=== PATIENT | female | born 2000 | race Caucasian/White ===

== ENCOUNTER 2018-01-09 15:40 | Emergency (ER) | payer OTHER ==
[~2018-01-09] VITALS: Ht 152.4 cm; Wt 61.2 kg
[2018-01-09 15:59] VITALS: BP_SYST 132
[2018-01-09] MEDS ORDERED: KETOROLAC TROMETHAMINE 60 MG/2 ML VIAL IM ONE (16:30)
[2018-01-09] MEDS ORDERED: HYDROcodone/ACETAMIN 7.5-325 MG TAB PO ONE (16:45)
[2018-01-09 16:47] LABS: HCG,QUAL RESULT NEGATIVE (NEGATIVE)
[2018-01-09 18:07] VITALS: BP_SYST 108
== END 2018-01-09 18:04 | disposition home or self-care (01) ==
LOC: SED 15:40
DX: K08.89 Other specified disorders of teeth and supporting structures (principal); R03.0 Elevated blood-pressure reading, without diagnosis of hypertension; J45.909 Unspecified asthma, uncomplicated
CPT/HCPCS: 81025; 84703; 96372; 99283; J1885

== ENCOUNTER 2018-07-16 10:19 | Emergency (ER) | payer OTHER ==
[~2018-07-16] VITALS: Ht 152.4 cm; Wt 61.2 kg
[2018-07-16 10:23] VITALS: BP_SYST 130
[2018-07-16] MEDS ORDERED: ALBUTEROL SULFATE 0.083% 2.5 MG/3 ML VIAL.NEB IH ONE (10:45)
[2018-07-16] MEDS ORDERED: DEXAMETHASONE SOD PHOSPHATE 4 MG/ML VIAL IVP ONE (10:45)
[2018-07-16] MEDS ORDERED: IPRATROPIUM BROM 0.5 MG/2.5 ML VIAL.NEB (ATROVENT) IH ONE (10:45)
[2018-07-16] MEDS ORDERED: DEXAMETHASONE SOD PHOSPHATE 10 MG/ML VIAL IVP ONE (10:45)
[2018-07-16] MEDS ORDERED: IPRATROPIUM/ALBUTEROL SULFATE 3 ML AMPUL.NEB (DUONEB) ONE (10:51)
[2018-07-16 11:40] VITALS: BP_SYST 130
== END 2018-07-16 11:40 | disposition home or self-care (01) ==
LOC: SED 10:19
DX: J45.901 Unspecified asthma with (acute) exacerbation (principal)
CPT/HCPCS: 81025; 94640; 96374; 99283; J1100; J7620

== ENCOUNTER 2019-01-17 11:18 | Emergency (ER) | payer OTHER ==
[~2019-01-17] VITALS: Ht 152.4 cm; Wt 61.2 kg
[2019-01-17 11:20] VITALS: BP_SYST 150
--- NOTE | 2019-01-17 11:24 | NUR ---
Patient triaged and placed in waiting room. VSS and patient appears in no acute distress at this time. Accompanied by mother, awaiting available bed, and MD notified of need for MSE.
--- NOTE | 2019-01-17 12:00 | NUR ---
Patient to ER bed 06 to gown for evaluation. Side rails up.
--- NOTE | 2019-01-17 12:00 | NUR ---
Pt AAOx4 ambulated into ED c/o cough with new onset wheezing x 2-3 days. Pt has hx of asthma and is using nebulizer with no relief. C/o epigastric discomfort during cough. Denies n/v/d. Skin pink dry and warm, cough present. No other injuries/complaints per pt/noted. Will continue to monitor.
--- NOTE | 2019-01-17 12:10 | NUR ---
TERESO Evangelista at bedside examining patient.
[2019-01-17] MEDS ORDERED: IPRATROPIUM/ALBUTEROL SULFATE 3 ML AMPUL.NEB (DUONEB) INH ONE (12:15)
[2019-01-17] MEDS ORDERED: methylPREDNISolone SOD SUCC/PF 62.5 MG/ML VIAL IM ONE (12:15)
--- NOTE | 2019-01-17 12:24 | NUR ---
Respiratory at bedside for breathing tx
--- NOTE | 2019-01-17 12:43 | NUR ---
Medication administered. Pt tolerated well. No adverse reactions noted.
--- NOTE | 2019-01-17 12:58 | NUR ---
Patient given written and verbal discharge instructions and verbalizes understanding. ER MD discussed with patient the results and treatment provided. Patient in stable condition. ID arm band removed. Rx of Prednisone given. Patient educated on pain management and to follow up with PMD. Pain Scale 0/10. Opportunity for questions provided and answered. Medication side effect fact sheet provided.
[2019-01-17 13:01] VITALS: BP_SYST 150
== END 2019-01-17 12:58 | disposition home or self-care (01) ==
LOC: SED 11:18
DX: J45.901 Unspecified asthma with (acute) exacerbation (principal)
CPT/HCPCS: 71045; 94640; 96372; 99283; J2930; J7620

== ENCOUNTER 2019-03-27 01:30 | Emergency (ER) | payer OTHER ==
[~2019-03-27] VITALS: Ht 165.1 cm; Wt 61.2 kg
[2019-03-27 01:56] VITALS: BP_SYST 128
[2019-03-27] MEDS ORDERED: LevALBUTEROL HCL 1.25 MG/0.5 ML *CONC.* VIAL.NEB (XOPENEX CONC.) INH ONE (02:15)
[2019-03-27] MEDS ORDERED: PREDNISONE 20 MG TABLET PO ONE (02:15)
[2019-03-27 03:19] VITALS: BP_SYST 128
== END 2019-03-27 03:19 | disposition home or self-care (01) ==
LOC: SED 01:30
DX: J45.901 Unspecified asthma with (acute) exacerbation (principal)
CPT/HCPCS: 94640; 99283; J7512; J7612

== ENCOUNTER 2019-12-30 14:11 | Emergency (ER) | payer OTHER ==
[~2019-12-30] VITALS: Ht 152.4 cm; Wt 61.2 kg
[2019-12-30 14:12] VITALS: BP_SYST 125
--- NOTE | 2019-12-30 14:12 | NUR ---
BROUGHT BACK TO BED #6 AND TRIAGED. REPORT GIVEN TO BRYAN
[2019-12-30] MEDS ORDERED: ALBUTEROL SULFATE 0.083% 2.5 MG/3 ML VIAL.NEB INH ONE ×2 (14:30→14:49)
[2019-12-30] MEDS ORDERED: IPRATROPIUM BROM 0.5 MG/2.5 ML VIAL.NEB (ATROVENT) INH ONE ×2 (14:30→14:48)
[2019-12-30] MEDS ORDERED: predniSONE 20 MG TABLET PO ONE (14:30)
--- NOTE | 2019-12-30 14:30 | NUR ---
ER at bedside examining patient.
--- NOTE | 2019-12-30 14:35 | NUR ---
pt getting a breathing tx a the bedside
--- NOTE | 2019-12-30 15:08 | NUR ---
Medicated w/ Prednisone per MD order.
[2019-12-30 15:36] VITALS: BP_SYST 125
== END 2019-12-30 15:36 | disposition home or self-care (01) ==
LOC: SED 14:11
DX: J45.909 Unspecified asthma, uncomplicated (principal)
CPT/HCPCS: 94640; 99283; J7512; J7613

== ENCOUNTER 2020-01-30 10:07 | Emergency (ER) | payer OTHER, SELFPAY ==
[~2020-01-30] VITALS: Ht 152.4 cm; Wt 61.2 kg
[2020-01-30 10:07] VITALS: BP_SYST 122
--- NOTE | 2020-01-30 10:07 | NUR ---
BROUGHT INTO OUTSIDE TENT AND TRIAGED. WILL ASSUME CARE
--- NOTE | 2020-01-30 10:30 | NUR ---
DR FIELD TO [facility] FOR EVALUATION OF PT.
[2020-01-30] MEDS ORDERED: predniSONE 20 MG TABLET PO ONE (10:45)
--- NOTE | 2020-01-30 11:30 | NUR ---
COVID TEST DONE, PT TOLERATED IT WELL. NO CHANGES. NO DISTRESS
--- NOTE | 2020-01-30 11:51 | NUR ---
Patient given written and verbal discharge instructions and verbalizes understanding. ER MD discussed with patient the results and treatment provided. Patient in stable condition. ID arm band removed. Rx of PREDNISONE, AZITHROMYCIN, ALBUTEROL given. Patient educated on pain management and to follow up with PMD. Pain Scale 0/10. Opportunity for questions provided and answered. Medication side effect fact sheet provided.
== END 2020-01-30 11:51 | disposition home or self-care (01) ==
LOC: SED 10:07
DX: J45.901 Unspecified asthma with (acute) exacerbation (principal); J20.9 Acute bronchitis, unspecified; Z20.828 Contact with and (suspected) exposure to other viral communicable diseases
CPT/HCPCS: 71045; 99284; C9803; U0003

== ENCOUNTER 2020-01-31 04:13 | Emergency (ER) | payer OTHER ==
[~2020-01-31] VITALS: Ht 152.4 cm; Wt 61.2 kg
[2020-01-31 04:15] VITALS: BP_SYST 152
--- NOTE | 2020-01-31 04:20 | NUR ---
Placed in room 6 . Placed on shipping packer, blood pressure machine and pulse oximeter. To gown for exam. Side rails up. Report given to SUKHWINDER MAGDALENO(REGISTRY).
--- NOTE | 2020-01-31 04:25 | NUR ---
ER at bedside examining patient.
[2020-01-31] MEDS ORDERED: IPRATROPIUM/ALBUTEROL SULFATE 3 ML AMPUL.NEB (DUONEB) ONE (04:38)
[2020-01-31] MEDS ORDERED: LevALBUTEROL HCL 1.25 MG/0.5 ML *CONC.* VIAL.NEB (XOPENEX CONC.) INH ONE ×2 (04:38→06:00)
[2020-01-31] MEDS: LevALBUTEROL HCL 1.25 MG/0.5 ML *CONC.* VIAL.NEB (XOPENEX CONC.) INH ONE ×2 (04:44→05:47)
--- NOTE | 2020-01-31 04:53 | NUR ---
PT C/O SOB DIFFICULTY BREATHING ASTHMA ON MONITOR PULSE OX
[2020-01-31] MEDS: predniSONE 20 MG TABLET PO ONE (05:00)
--- NOTE | 2020-01-31 05:04 | NUR ---
RT TO GIVE PT RESP TX ;PREDNISONE 40MG PO GIVEN
--- NOTE | 2020-01-31 05:41 | NUR ---
RT TO GIVE REPEAT BREATHING TX
[2020-01-31] MEDS: IPRATROPIUM BROM 0.5 MG/2.5 ML VIAL.NEB (ATROVENT) INH ONE (05:47)
--- NOTE | 2020-01-31 06:15 | NUR ---
DR GAMEZ ORDERED ANOTHER BREATHING TX RT CALLED PT STATES WHEN COUGHS CHEST HURTS PT UP TO BR TO VOID URINE KRYSTAL WELL
--- NOTE | 2020-01-31 07:11 | NUR ---
Patient given written and verbal discharge instructions and verbalizes understanding. ER MD discussed with patient the results and treatment provided. Patient in stable condition. ID arm band removed. , Rx 1 given. Patient educated on pain management and to follow up with PMD. Pain Scale . Opportunity for questions provided and answered. Medication side effect fact sheet provided.
[2020-01-31 07:16] VITALS: BP_SYST 122
== END 2020-01-31 07:11 | disposition home or self-care (01) ==
LOC: SED 04:13
DX: J45.901 Unspecified asthma with (acute) exacerbation (principal); Z79.899 Other long term (current) drug therapy
CPT/HCPCS: 94640; 99284; J7512; J7612

== ENCOUNTER 2020-05-03 17:26 | Emergency (ER) | payer OTHER ==
[~2020-05-03] VITALS: Ht 152.4 cm; Wt 61.2 kg
[2020-05-03 17:30] VITALS: BP_SYST 147
[2020-05-03] MEDS ORDERED: predniSONE 20 MG TABLET PO ONE (17:45)
[2020-05-03] MEDS ORDERED: IPRATROPIUM BROM 0.5 MG/2.5 ML VIAL.NEB (ATROVENT) INH ONE (17:45)
[2020-05-03] MEDS ORDERED: ALBUTEROL SULFATE 0.083% 2.5 MG/3 ML VIAL.NEB INH ONE (17:45)
[2020-05-03] MEDS ORDERED: PRED20TA PO (18:54)
[2020-05-03] MEDS ORDERED: ALBU2.5V7 INH (18:54)
[2020-05-03 19:10] VITALS: BP_SYST 147
== END 2020-05-03 19:10 | disposition home or self-care (01) ==
LOC: SED 17:26
DX: J45.901 Unspecified asthma with (acute) exacerbation (principal)
CPT/HCPCS: 71045; 94640; 99283; J7512; J7613

== ENCOUNTER 2020-09-19 07:03 | Emergency (ER) | payer OTHER ==
[~2020-09-19] VITALS: Ht 152.4 cm; Wt 68.0 kg
[~2020-09-19 07:03] MED LIST: ALBU2.5V7 INH; PRED20TA PO
[2020-09-19 07:30] VITALS: BP_SYST 151
[2020-09-19] MEDS ORDERED: PRED50TA PO (07:42)
[2020-09-19] MEDS: IPRATROPIUM/ALBUTEROL SULFATE 3 ML AMPUL.NEB (DUONEB) INH ONE (07:47)
[2020-09-19] MEDS: predniSONE 20 MG TABLET PO ONE (08:09)
[2020-09-19 08:48] VITALS: BP_SYST 147
== END 2020-09-19 08:49 | disposition home or self-care (01) ==
LOC: SED 07:03
DX: J45.901 Unspecified asthma with (acute) exacerbation (principal); Z79.899 Other long term (current) drug therapy; Z20.822 Contact with and (suspected) exposure to COVID-19
CPT/HCPCS: 71045; 94640; 99284; J7512; U0003; C9803

== ENCOUNTER 2021-04-07 11:00 | Emergency (ER) | payer OTHER, SELFPAY ==
[~2021-04-07] VITALS: Ht 152.4 cm; Wt 68.0 kg
[~2021-04-07 11:00] MED LIST changes: +PRED50TA PO
[2021-04-07 11:18] VITALS: BP_SYST 129
[2021-04-07] MEDS ORDERED: IPRATROPIUM/ALBUTEROL SULFATE 3 ML AMPUL.NEB (DUONEB) INH ONE (12:00)
[2021-04-07] MEDS ORDERED: predniSONE 20 MG TABLET PO ONE (12:00)
[2021-04-07] MEDS ORDERED: PRED50TA PO (12:40)
[2021-04-07] MEDS ORDERED: ALBU2.5V7 INH (12:40)
== END 2021-04-07 13:03 | disposition home or self-care (01) ==
LOC: SED 11:00
DX: J45.901 Unspecified asthma with (acute) exacerbation (principal); Z79.899 Other long term (current) drug therapy
CPT/HCPCS: 94640; 99283; J7512

== ENCOUNTER 2021-11-19 16:35 | Emergency (ER) | payer OTHER ==
[~2021-11-19] VITALS: Ht 152.4 cm; Wt 72.6 kg
[2021-11-19 16:35] VITALS: BP_SYST 131
--- NOTE | 2021-11-19 16:40 | NUR ---
Patient triaged and placed in waiting room. VSS and patient appears in no acute distress at this time. Accompanied by SELF, awaiting available bed, and MD notified of need for MSE.
--- NOTE | 2021-11-19 17:40 | NUR ---
CALLED FOR BED PLACEMENT, UNABLE TO LOCATE PT IN WAITING ROOM
--- NOTE | 2021-11-19 17:50 | NUR ---
CALLED FOR BED ASSIGNMENT, UNABLE TO LOCATE PT.
--- NOTE | 2021-11-19 17:55 | NUR ---
Patient left without being seen.
== END 2021-11-19 17:55 | disposition left against medical advice (07) ==
LOC: SED 16:35
DX: J45.901 Unspecified asthma with (acute) exacerbation (principal); R05.9 Cough, unspecified; Z53.21 Procedure and treatment not carried out due to patient leaving prior to being seen by health care provider

== ENCOUNTER 2021-11-25 09:46 | Emergency (ER) | payer OTHER ==
[~2021-11-25] VITALS: Ht 157.5 cm; Wt 72.6 kg
[2021-11-25 09:47] VITALS: BP_SYST 146
[2021-11-25] MEDS ORDERED: predniSONE 20 MG TABLET PO ONE (10:45)
[2021-11-25] MEDS ORDERED: ALBUTEROL SULFATE 0.083% 2.5 MG/3 ML VIAL.NEB INH ONE ×2 (10:45→12:45)
[2021-11-25] MEDS ORDERED: PRED20TA PO (13:14)
[2021-11-25 15:29] VITALS: BP_SYST 135
== END 2021-11-25 14:00 | disposition home or self-care (01) ==
LOC: SED 09:46
DX: J45.909 Unspecified asthma, uncomplicated (principal); J11.1 Influenza due to unidentified influenza virus with other respiratory manifestations; R05.9 Cough, unspecified; R09.81 Nasal congestion; Z79.899 Other long term (current) drug therapy; Z20.822 Contact with and (suspected) exposure to COVID-19
CPT/HCPCS: 36415; 71045; 94640; 99284; 81025; 87804 ×2; 87426; J7613